=== PATIENT | male | born 1995 | race Caucasian/White ===

== ENCOUNTER 2016-09-12 08:17 | Emergency (ER) | payer BC ==
[~2016-09-12] VITALS: Ht 177.8 cm; Wt 81.6 kg
[~2016-09-12 08:17] MED LIST: HYDR-3812 PO; IBP800T PO
[2016-09-12] MEDS ORDERED: TETANUS,DIPTH,PERTUSS P/F (BOOSTRIX) 0.5 ML VIAL IM ONE (08:45)
[2016-09-12] MEDS ORDERED: HYDROcodone/APAP 5 MG/325 MG (LORTAB) TAB PO ONE (08:45)
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
--- NOTE | 2016-09-12 09:18 | Diagnostic Imaging Report ---
INDICATION: Fall, right wrist pain COMPARISON: None FINDINGS: Four views of the right wrist demonstrate minimally displaced fracture of the radial styloid. No intra-articular involvement is seen. The ulna is intact. Carpal bones are grossly normal. IMPRESSION: Distal radial fracture. Dictated by: Dictated on workstation # [id number]
--- NOTE | 2016-09-12 09:21 | Diagnostic Imaging Report ---
INDICATION: Left elbow pain and injury COMPARISON: None FINDINGS: 3 views of the left elbow demonstrate no fracture or dislocation. Articular surfaces normal. There is no joint effusion. IMPRESSION: Negative left elbow. Dictated by: Dictated on workstation # [id number]
[2016-09-12] MEDS ORDERED: HYDR-757 PO (09:37)
[2016-09-12 09:41] VITALS: BP 0/0
== END 2016-09-12 09:41 | disposition home or self-care (01) ==
LOC: EDUNIT# 08:17 → ER 08:18
DX: S52.501A Unspecified fracture of the lower end of right radius, initial encounter for closed fracture (principal); S60.811A Abrasion of right wrist, initial encounter; Z23 Encounter for immunization; W01.0XXA Fall on same level from slipping, tripping and stumbling without subsequent striking against object, initial encounter; Y99.8 Other external cause status
CPT/HCPCS: 29125; 73080; 73110; 90471; 90715

== ENCOUNTER 2017-12-28 15:59 | Emergency (ER) | payer BC ==
[~2017-12-28] VITALS: Ht 177.8 cm; Wt 74.8 kg
[~2017-12-28 15:59] MED LIST changes: +ACHD5005 PO; -HYDR-3812 PO; +HYDR-757 PO
--- OUTSIDE RECORDS SUMMARY | 2017-12-28 16:04 | XMS REPORT | Continuity of Care Document ---
Author Author [facility] Organization [facility] Address Unknown Phone Unavailable Allergies Active Description Code Type Severity Reaction Onset Reported/Identified Relationship to Patient Clinical Status Yes No Known Drug Allergies [id number] Drug Allergy Mild N/A 12/05/2009 Medications There is no data. Problems Date Dx Coded Attending Type Code Diagnosis Diagnosed By 04/25/2012 Ot 733.6 04/25/2012 Ot 786.50 04/25/2012 Ot 786.52 04/06/2015 KAVYA STEEN ANVIL WORKER Ot 719.41 04/06/2015 KATIA ROBINS Ot 815.00 04/06/2015 KATIA ROBINS Ot 959.4 04/06/2015 KATIA ROBINS Ot E000.8 04/06/2015 KATIA ROBINS Ot E008.1 04/06/2015 KATIA ROBINS Ot E849.0 04/06/2015 KATIA ROBINS Ot E917.4 04/06/2015 KATIA ROBINS Ot V06.1 04/06/2015 KAVYA STEEN ANVIL WORKER Ot 719.41 09/12/2016 TEVIN ANTOINE MD Ot S52.501A UNSP FRACTURE OF THE LOWER END OF RIGHT 09/12/2016 TEVIN ANTOINE MD Ot S60.811A ABRASION OF RIGHT WRIST, INITIAL ENCOUNT 09/12/2016 TEVIN ANTOINE MD Ot S69.91XA UNSP INJURY OF RIGHT WRIST, HAND AND FIN 09/12/2016 TEVIN ANTOINE MD Ot W01.0XXA FALL SAME LEV FROM SLIP/TRIP W/O STRIKE 09/12/2016 TEVIN ANTOINE MD Ot Y99.8 OTHER EXTERNAL CAUSE STATUS 09/12/2016 TEVIN ANTOINE MD Ot Z23 ENCOUNTER FOR IMMUNIZATION 09/13/2016 TEVIN ANTOINE MD Ot S52.501A UNSP FRACTURE OF THE LOWER END OF RIGHT 09/13/2016 TEVIN ANTOINE MD Ot S60.811A ABRASION OF RIGHT WRIST, INITIAL ENCOUNT 09/13/2016 TEVIN ANTOINE MD Ot S69.91XA UNSP INJURY OF RIGHT WRIST, HAND AND FIN 09/13/2016 TEVIN ANTOINE MD Ot W01.0XXA FALL SAME LEV FROM SLIP/TRIP W/O STRIKE 09/13/2016 TEVIN ANTOINE MD Ot Y99.8 OTHER EXTERNAL CAUSE STATUS 09/13/2016 TEVIN ANTOINE MD Ot Z23 ENCOUNTER FOR IMMUNIZATION Procedures There is no data. Results There is no data. Encounters ACCT No. Visit Date/Time Discharge Status Pt. Type Provider Facility Loc./Unit Complaint [id number] 09/12/2016 08:18:00 09/12/2016 09:41:00 DIS Emergency TEVIN ANTOINE MD [facility] ER R WRIST INJ [id number] 04/06/2015 19:59:00 04/06/2015 21:28:00 DIS Emergency KATIA ROBINS [facility] ER [id number] 03/03/2013 09:23:00 03/03/2013 23:59:59 CLS Outpatient KAVYA STEEN APRN [facility] RAD [id number] 04/06/2015 19:58:00 Document Registration [id number] 04/25/2012 20:01:00 Document Registration
--- OUTSIDE RECORDS SUMMARY | 2017-12-28 16:04 | XMS REPORT ---
Author Author JUDSON MONACO Organization [facility] Address [address] [place] [address] Care Team Providers Care Money Market Dealer Name Role Phone JUDSON MONACO Unavailable PROBLEMS Type Condition ICD9-CM Code [id number] Code Onset Dates Condition Status SNOMED Code Problem Mild episode of recurrent major depressive disorder F33.0 Active 176019041 Problem Generalized social phobia F40.11 Active [id number] ALLERGIES Substance Reaction Event Type Date Status N.K.D.A. Unknown Non Drug Allergy Jul, Unknown SOCIAL HISTORY No smoking Hx information available PLAN OF CARE Activity Details Follow Up 4 Weeks Reason: VITAL SIGNS Height 70.2 in 2016-07-28 Weight 186.1 lbs 2016-07-28 Heart Rate 90 bpm 2016-07-28 Respiratory Rate 2016-07-28 BMI 26.55 kg/m2 2016-07-28 Blood pressure systolic 130 mmHg 2016-07-28 Blood pressure diastolic 80 mmHg 2016-07-28 MEDICATIONS Medication Instructions Dosage Frequency Start Date End Date Duration Status Effexor XR 150 MG Orally Once a day 1 capsule with food 24h Jul, Active Quetiapine Fumarate 50 MG Orally Once a day 1 tablet 24h Active RESULTS No Results PROCEDURES Procedure Date Ordered Related Diagnosis Body Site MH Office Visit, Est Pt., Level 2 Jul 28, 2016 IMMUNIZATIONS No Known Immunizations
--- OUTSIDE RECORDS SUMMARY | 2017-12-28 16:04 | XMS REPORT ---
Author Author JUDSON MONACO [facility] Address [address] [place] [address] Care Team Providers Care Propagation Worker Name Role Phone JUDSON MONACO Unavailable PROBLEMS Type Condition ICD9-CM Code [id number] Code Onset Dates Condition Status SNOMED Code Problem Generalized social phobia F40.11 Active 24092169 Problem Mild episode of recurrent major depressive disorder F33.0 Active [id number] ALLERGIES Substance Reaction Event Type Date Status N.K.D.A. Unknown Non Drug Allergy Aug, Unknown SOCIAL HISTORY No smoking Hx information available PLAN OF CARE Activity Details Follow Up 4 Weeks Reason: VITAL SIGNS Height 70.2 in 2016-08-26 Weight 181.6 lbs 2016-08-26 Heart Rate 128 bpm 2016-08-26 Respiratory Rate 22 2016-08-26 BMI 25.91 kg/m2 2016-08-26 Blood pressure systolic 140 mmHg 2016-08-26 Blood pressure diastolic 93 mmHg 2016-08-26 MEDICATIONS Medication Instructions Dosage Frequency Start Date End Date Duration Status Abilify 10 mg Orally Once a day 1 tablet in the AM 24h Aug, Active Wellbutrin SR 100 MG Orally Once a day 1 tablet 24h Aug, Active RESULTS No Results PROCEDURES Procedure Date Ordered Related Diagnosis Body Site MH Office Visit, Est Pt., Level 2 Aug 26, 2016 IMMUNIZATIONS No Known Immunizations
--- NOTE | 2017-12-28 17:13 | Diagnostic Imaging Report ---
INDICATION: Hand trauma, pain. COMPARISON: None. FINDINGS: Three views of the left hand demonstrate angulated nondisplaced distal fifth metacarpal fracture. No intra-articular involvement is seen. There is no foreign body. IMPRESSION: Fifth metacarpal fracture. Dictated by: Dictated on workstation # [id number]
[2017-12-28] MEDS ORDERED: HYDR-3812 PO (18:24)
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
[2017-12-28 18:33] VITALS: BP 136/84
== END 2017-12-28 18:33 | disposition home or self-care (01) ==
LOC: EDUNIT# 15:59 → ER 16:00
DX: S62.347A Nondisplaced fracture of base of fifth metacarpal bone, left hand, initial encounter for closed fracture (principal); F41.9 Anxiety disorder, unspecified; F32.9 Major depressive disorder, single episode, unspecified; F12.10 Cannabis abuse, uncomplicated; W22.01XA Walked into wall, initial encounter
CPT/HCPCS: 73130

== ENCOUNTER 2019-10-12 19:44 | Emergency (ER) | payer BC, OTHER ==
[~2019-10-12] VITALS: Ht 179 cm; Wt 82.0 kg
[~2019-10-12 19:44] MED LIST changes: +HYDR-4226 PO; -HYDR-757 PO
[2019-10-12 20:02] VITALS: BP 136/72
[2019-10-12] MEDS ORDERED: cefTRIAXone 1,000 MG/2.86 ml vial (IM ONLY) IM SCH (20:15)
[2019-10-12] MEDS ORDERED: AZITHROMYCIN 250 MG TAB (ZITHROMAX) PO SCH (20:15)
[2019-10-12] MEDS ORDERED: LIDOCAINE 1% INJ 20 ML 20 ML VIAL INJ ONE (20:15)
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
[2019-10-12 20:30] LABS: BILIRUBIN,URINE NEGATIVE (NEGATIVE); CLARITY,URINE CLEAR; COLOR,URINE YELLOW; GLUCOSE, URINE (UA) NEGATIVE (NEGATIVE); KETONES,URINE NEGATIVE (NEGATIVE); LEUKOCYTE ESTERASE ,URINE NEGATIVE (NEGATIVE); NITRITE,URINE NEGATIVE (NEGATIVE); PH,URINE 6.5 (5-9); PROTEIN,URINE TRACE (NEGATIVE)
[2019-10-12 20:38] LABS: BACTERIA,URINE TRACE /HPF; RBC,URINE RARE /HPF; SQUAMOUS EPITHELIAL CELL,UR RARE /HPF
[2019-10-12 20:39] LABS: AMORPHOUS SEDIMENT,UR FEW AMOR URATES /LPF
--- NOTE | 2019-10-12 20:42 | Diagnostic Imaging Report ---
PROCEDURE: CT urinary tract, rule out kidney stone. TECHNIQUE: Multiple contiguous axial images were obtained through the abdomen and pelvis without the use of intravenous contrast. Auto Exposure Controls were utilized during the CT exam to meet ALARA standards for radiation dose reduction. INDICATION: Right flank pain Unenhanced images of the liver, gallbladder, pancreas and spleen are unremarkable. Unenhanced images of the kidneys reveal no evidence of mass, hydronephrosis or renal stone. No ureteric calculus or dilatation is identified. There is no evidence of bladder calculus. There is no evidence of appendiceal inflammation. No free fluid is seen within the abdomen or pelvis. Colon is largely decompressed. There is localized L3-L4 degenerative disc disease with endplate irregularity which may be related to previous inflammation. IMPRESSION: No acute abnormalities identified. In particular, there is no evidence of urinary tract calculus or obstruction on the noncontrasted study. Dictated by: Dictated on workstation # [id number]
--- OUTSIDE RECORDS SUMMARY | 2019-10-17 00:06 | XMS REPORT ---
Author Author [facility] Organization [facility] Address [address] [address] Care Team Providers Care Sap Bods Developer Name Role Phone PIPER DAWSON Unavailable JUDSON MONACO Unavailable JUDSON MONACO Unavailable PIPER DAWSON Unavailable SHY SCHUMACHER Unavailable TEVIN ANTOINE MD Unavailable Unavailable Allergies Normalized Allergy Reported Date of Reaction(s) Care Provider Facility Allergy Type classification allergen Allergy Onset DA (3 Unclassified No Known Drug 12-05-2009 - no information TEVIN ANTOINE , Not Available sources.) Allergies (52995) Medications Medication Ingredient Drug Dose Dates Status Sig Sig Care Class(es) (Normalized) (Original) Provid er no Ibuprofen no 800 mg 04-25-20 Complete take 1 Ibuprofe n Sherman information (Motrin information 12 - d tablet by (Motrin A (1 source.) Tablet) 800 20 mouth three Tablet) 800 Preet chastity Mg Tablet, 18 times daily Mg Tablet, 1 (no 1 Each Oral as needed Each Oral phone) Three Times A Day And Prn 04/25/12 Discontinued Problems Active Problems Problem Normalized Date of Normalized Normalized Provider Fac ility Classification Problem(s) Problem Problem Problem Sta tus Onset/Resoluti Duration on Substance-rela Cannabis Chronic Active BERNA Not Avai lable ralf disorders abuse, TRACY , (40596) (4 sources.) uncomplicated MD Other injuries Hand, except Episodic Active KATIA Not Available and conditions finger injury SUSAN GUZMAN (85710) due to external causes (1 source.) Immunizations Need for Episodic Active TEVIN ANTOINE , Not Available and screening prophylactic MD (91587) for infectious vaccination disease (4 and sources.) inoculation against diphtheria-tet anus-pertussis , combined [DTP] [DTaP] Translations: [ - Sexually transmitted disease exposure Z20.2, ENCOUNTER FOR IMMUNIZATION] Fracture of Nondisplaced Episodic Active TEVIN ANTOINE , No t Available upper limb (7 fracture of (58888) sources.) base of fifth metacarpal bone, left hand, initial encounter for closed fracture Translations: [ FX METACARPAL NOS-CLOSED, UNSP FRACTURE OF THE LOWER END OF RIGHT ] Other Other Episodic Active BERNA Not Available connective specified soft BRUEGGEDALILA , (60030) tissue disease tissue (4 sources.) disorders Other Pain in joint, Episodic Active KAVYA Not Chinyere ilable non-traumatic shoulder HALLACY (05401) joint region disorders (1 source.) Unclassified no information no information Active PIPER BARRINGTON VENS [facility] (2 sources.) [address] [facility] (18785) Past or Other Problems Problem Normalized Date of Normalized Normalized Provider Fac ility Classification Problem(s) Problem Problem Problem Sta tus Onset/Resoluti Duration on Superficial Abrasion of Episodic Completed TEVIN ANTOINE , Not Available injury; right wrist, (23508) contusion (2 initial sources.) encounter External cause Activities no information no information TEVIN MCCARTHYOMB , Not Available codes: involving (07900) Unspecified (3 wrestling sources.) Translations: [ OTHER EXTERNAL CAUSE STATUS, OTHER EXTERNAL CAUSE STATUS] External cause Fall on same no information no information TEVIN ANTOINE , Not Available codes: Fall (2 level from (12112) sources.) slipping, tripping and stumbling without subsequent striking against object, initial encounter External Home accidents no information no information KATIA Not Available Injury - Place SUSAN GUZMAN (12448) of occurrence (1 source.) Mood disorders Major no information no information BERNA Not Available (4 sources.) depressive BRUNIKOLE , (40485) disorder, single episode, unspecified Other injuries Unspecified Episodic Completed TEVIN ANTOINE , Not Available and conditions injury of (34048) due to right wrist, external hand and causes (2 finger(s), sources.) initial encounter NEGATED Walked into no information no information BERNA Not Available no wall, initial BRUEGGEDALILA , (21516) information (5 encounter MD sources.) Translations: [ STAT OB W/O SUB FALL NEC] Procedures Procedure Normalized Procedure Procedure Result Performer Facility Date 12-28-2017 Radiography of hand no information BERNAIRIS CONNER [facility] ([address]) Immunizations Normalized Immunization Date Notes Care Provider Facili ty Immunization diphtheria, tetanus 09-12-2016 no information no name Not Available toxoids and (95769) acellular pertussis vaccine tetanus toxoid, 09-12-2016 no information PIPER DAWSON [address] [address] [facility] reduced diphtheria [place] ([address]) toxoid, and acellular pertussis vaccine, adsorbed Results Test Name Value Interpretation Reference Range Date Time Fa cility (Normalized) (Normalized) (Medline Reference) No panel information on null Sodium no information (no code) [facility] ([address]) Vital Signs Vital Sign Value Interpretation Reference Date Time Care Prov ider Facility (Normalized) (Normalized) Range BMI (Body Mass 25.97 kg/m2 (no code) 15 - 25 kg/m2 05-04-2018 [facility] Community Index) 15:40-[address] ([address]) Height 177.8 cm (no code) cm 05-04-2018 SHY Commu nity 15:40-[address] ([address]) Weight 82.1 kg (no code) kg 05-04-2018 SHY Commu nity 15:40-[address] ([address]) Interventions No Information Plan of Treatment The data below is from unstructured sources Discharge Date 09/12/16 9:41am Disposition 01 HOME, SELF-CARE Condition at Discharge Improved Instructions/Education Provided Radi us Fracture (DC) Prescriptions See Medication Section Referrals MELVINA SPICER MD - PIPER DAWSON MD - Primary Care Physician PIPER DAWSON MD - Primary Care Physician Additional Instructions/Education Sp lint right wrist. Elevate and ice. Vicodin for pain. Follow up with your doctor or the orthopedic surgeon Wednesday. Come back if any problems. All discharge instructions reviewed with patient and/or family. Voiced understanding. Discharge Date 04/06/15 9:28pm Disposition 01 HOME, SELF-CARE Condition at Discharge Improved Instructions/Education Provided Hand Fracture (ED) How to Use a Sling (GEN) Forms Provided Work/School Release F orm Prescriptions See Medication Section Referrals PIPER DAWSON MD - [facility] Physician SHANE MOURA MD - Additional Instructions/Education Al l discharge instructions reviewed with patient and/or family. Voiced understanding. Medications as instructed. No Motrin, Aleve, or aspirin. Elevate the right hand on pillows, ice pack for 20 minute intervals 6 times daily for 3 days. Follow-up with Dr. Moura in the next 7 days for recheck, call first thing Wednesday morning for appointment time. Keep the splint clean and dry. Left-handed activities only until released by the orthopedic surgeon. Return to the emergency department for worsened pain, swelling, numbness, discoloration, pain from the splint, or any other concerns. Activity Details Follow Up 4 Weeks Reason: Discharge Date 12/28/17 6:33pm Disposition 01 HOME, SELF-CARE Condition at Discharge Improved Instructions/Education Provided Boxe r's Fracture Prescriptions See Medication Section Referrals PIPER DAWSON MD Order Date: Primary Care Physician Address: [address] [place] [address] Note: SHANE MOURA MD Address: [address] [address] [phone] Additional Instructions/Education El evation and icing in 20 minute intervals should help with pain and swelling. You may take Tylenol or the prescribed hydrocodone for pain. Follow up with Dr. Moura as soon as possible for further evaluation. Keep the hand in the splint. The Audie wraps can be loosened if necessary if swelling causes them to be too tight. Keep the splint clean and dry. Return to care if you have any significant complications. All discharge instructions reviewed with patient and/or family. Voiced understanding. Activity Details Follow Up prn Reason: Activity Details Follow Up prn Reason: Goals No Information Social History No Information Functional Status The data below is from unstructured sourcesNo functional status results.No functional status results.No functional status results.No functional status information available.No functional status information available. Mental Status No Information Encounters Encounter Normalized Encounter Encounter Diagnosis Care Provi wendy Organization Date Type 05-04-2018 (ACUTE) Acute Visit Contact with Shruti STATON AM (no [facility] (suspected) exposure phone) (no phone) to infections with a predominantly sexual mode of transmission 12-26-2014 (D-E/F/S) Dental examination MIKEY clarkAUTUMN (n o [facility] Extraction/Filling/SSC phone) DENTAL (no jostin ne) 02-12-2015 (D-PAIN/EMMY) Pain/EMMY Dental examination MIKEY KRUGER (no [facility] phone) DENTAL (no phone) 08-26-2016 (PSY-FU-20) Psychiatry Major depressive DAWNY BARNH ART (no [facility] FQ F/U 20 min disorder, recurrent, phone) (no phone ) mild 07-28-2016 (PSY-FU-20) Psychiatry Major depressive DAWNY BARNH ART (no [facility] FQHC F/U 20 min disorder, recurrent, phone) (no phone ) mild 07-07-2016 (PSY-INTAKE) Major depressive DAWNY JACINDA (no [facility] Psychiatry Intake disorder, recurrent, phone) (no ph one) mild 12-28-2017 Emergency department no information BERNA ABRAHAM no organization name - patient visit Work Phone: (no phone) 12-28-2017 12-28-2017 Patient encounter no information no name (no phone) no organization name (no phone) 03-03-2013 Patient encounter no information no name (no phone) no organization name (no phone) 09-19-2018 Patient encounter no information no name (no phone) no organization name procedure (no phone) 09-12-2016 Patient encounter no information no name (no phone) no organization name procedure (no phone) Patient encounter no information no name (no phone) no organ ization name procedure (no phone) no information Dental examination no name (no phone) no orga nization name (no phone) Medical Equipment No Information Payers No Information Advance Directives Directive Response Recor ded Date/Time Advance Directives No 8:30am Resuscitation Status Full Code 09/12/16 8:30am Directive Response Recor ded Date/Time Advance Directives No 8:13pm Resuscitation Status Full Code 04/06/15 8:13pm Directive Response Recor ded Date/Time Advance Directives No 4:40pm Resuscitation Status Full Code 12/28/17 4:40pm Discharge Instructions No hospital discharge instructions.No hospital discharge instructions.No hospital discharge instruction information available. Additional Source Comments This clinical document has been generated using [employer] software that has been certified by the Office of the National Coordinator for Health Information Technology (ONC 15.99.04.3023.Diam.[id number]) and the National Committee for [employer] (NCQA, as an eMeasure certified technology). FOR RECORDS PERTAINING TO PATIENTS WHO ARE OR HAVE BEEN ENROLLED IN A CHEMICAL D EPENDENCY/SUBSTANCE ABUSE PROGRAM, SOME INFORMATION MAY BE OMITTED. This clinica l summary was aggregated from multiple sources. Caution should be exercised in using it in the provision of clinical care. This summary normalizes information from multiple sources, and as a consequence, information in this document may ma terially change the coding, format and clinical context of patient data. In hernan tion, data may be omitted in some cases. CLINICAL DECISIONS SHOULD BE BASED ON T HE PRIMARY CLINICAL RECORDS. [employer] provides no warranty or guara ntee of the accuracy or completeness of information in this document.The followi ng information is based on time limited clinical information UNRECOGNIZED CONTENT PROVIDED BELOW FOR UNRECOGNIZED SECTION REASON FOR VISIT STD exposure
--- OUTSIDE RECORDS SUMMARY | 2019-10-17 00:06 | XMS REPORT ---
Author Author Dwayne SCHUMACHER Organization [facility] Address [address] [place] [address] Care Team Providers Care Director Of Analytical Development Name Role Phone SHY SCHUMAHCER Unavailable PROBLEMS Type Condition ICD9-CM Code BAG23-MH Code Onset Dates Condition S tatus SNOMED Code Problem Generalized social phobia F40.11 Acti ve [id number] Problem Mild episode of recurrent major depressive disorder F33.0 Active [id number] ALLERGIES No Known Allergies ENCOUNTERS Encounter Location Date Diagnosis [facility] [address] [id number] Apr, Sexually transmitted disease exposure Z20.2 [facility] [address] [phone] Aug, Mild episode of recurrent ma kena depressive disorder F33.0 and Generalized social phobia F40.11 [facility] [id number] [place] [phone] Jul, Mild episode of recurrent ma kena depressive disorder F33.0 and Generalized social phobia F40.11 [facility] [address] [id number] [address] [place] [id number] Jun, Mild episode of recurrent ma kena depressive disorder F33.0 and Generalized social phobia F40.11 [facility] [address] [facility] [id number] [address] [place] [phone] Feb, Dental examination V72.2 [facility] [address] [id number] [address] [place] [phone] December, Dental examination V72.2 IMMUNIZATIONS No Known Immunizations SOCIAL HISTORY Never Assessed REASON FOR VISIT STD exposure PLAN OF CARE Activity Details Follow Up prn Reason: VITAL SIGNS Height 70 in 2018-05-04 Weight 181 lbs 2018-05-04 Heart Rate 98 bpm 2018-05-04 Respiratory Rate 18 2018-05-04 BMI 25.97 kg/m2 2018-05-04 Blood pressure systolic 138 mmHg 2018-05-04 Blood pressure diastolic 88 mmHg 2018-05-04 MEDICATIONS No Known Medications RESULTS No Results PROCEDURES No Known procedures INSTRUCTIONS MEDICATIONS ADMINISTERED No Known Medications
--- OUTSIDE RECORDS SUMMARY | 2019-10-17 00:06 | XMS REPORT | Continuity of Care Document ---
Author Organization Unknown Address Unknown Phone Unavailable Allergies Active Description Code Type Severity Reaction Onset Reported/Identified Relationship to Patient Clinical Status Yes No Known Drug Allergies [id number] Drug Allergy Mild N/A 12/05/2009 Medications There is no data. Problems Date Dx Coded Attending Type Code Diagnosis Diagnosed By 04/25/2012 Ot 733.6 04/25/2012 Ot 786.50 04/25/2012 Ot 786.52 04/06/2015 KAVYA STEEN ORDNANCE HANDLER Ot 719.41 04/06/2015 KATIA ROBINS Ot 815.00 FX METACARPAL NOS-CLOSED 04/06/2015 KATIA ROBINS Ot 959.4 HAND INJURY NOS 04/06/2015 KATIA ROBINS Ot E000.8 OTHER EXTERNAL CAUSE STATUS 04/06/2015 KATIA ROBISN Ot E008.1 ACTIVITIES INVOLVING WRESTLING 04/06/2015 KATIA ROBINS Ot E849.0 ACCIDENT IN HOME 04/06/2015 KATIA ROBINS Ot E917.4 STAT OB W/O SUB FALL NEC 04/06/2015 KATIA ROBINS Ot V06.1 [id number], COMBINED [ 04/06/2015 KAVYA STEEN ORDNANCE HANDLER Ot 719.41 09/12/2016 TEVIN ANTOINE MD Ot S52.501A UNSP FRACTURE OF THE LOWER END OF RIGHT 09/12/2016 TEVIN ANTOINE MD Ot S60.811A ABRASION OF RIGHT WRIST, INITIAL ENCOUNT 09/12/2016 TEVIN ANTOINE MD Ot S69.91XA UNSP INJURY OF RIGHT WRIST, HAND AND FIN 09/12/2016 TEVIN ANTOINE MD Ot W01.0XXA FALL SAME LEV FROM SLIP/TRIP W/O STRIKE 09/12/2016 TEVIN ANTOINE MD Ot Y99. 8 OTHER EXTERNAL CAUSE STATUS 09/12/2016 TEVIN ANTOINE MD Ot Z23 ENCOUNTER FOR IMMUNIZATION 09/13/2016 ARASH GOLD, TEVIN Kumar Ot S52.501A UNSP FRACTURE OF THE LOWER END OF RIGHT 09/13/2016 ARASH GOLD, TEVIN Kumar Ot S60.811A ABRASION OF RIGHT WRIST, INITIAL ENCOUNT 09/13/2016 ARASH GOLD TEVIN Kumar Ot S69.91XA UNSP INJURY OF RIGHT WRIST, HAND AND FIN 09/13/2016 TEVIN ANTOINE MD Ot W01.0XXA FALL SAME LEV FROM SLIP/TRIP W/O STRIKE 09/13/2016 ARASH GOLD, TEVIN Stacy Ot Y99. 8 OTHER EXTERNAL CAUSE STATUS 09/13/2016 ARASH GOLD, TEVIN Kumar Ot Z23 ENCOUNTER FOR IMMUNIZATION 12/28/2017 BERNA MOLINA MD Ot F12.10 CANNABIS ABUSE, UNCOMPLICATED 12/28/2017 BERNA MOLINA MD Ot F32.9 MAJOR DEPRESSIVE DISORDER, SINGLE EPISOD 12/28/2017 BERNA MOLINA MD Ot F41.9 ANXIETY DISORDER, UNSPECIFIED 12/28/2017 BERNA MOLINA MD Ot M79.89 OTHER SPECIFIED SOFT TISSUE DISORDERS 12/28/2017 BERNA MOLINA MD Ot S62.347A NONDISP FX OF BASE OF FIFTH METACARPAL B 12/28/2017 BERNA MOLINA MD Ot W22.01XA WALKED INTO WALL, INITIAL ENCOUNTER 12/30/2017 BERNA MOLINA MD Ot F12.10 CANNABIS ABUSE, UNCOMPLICATED 12/30/2017 BERNA MOLINA MD Ot F32.9 MAJOR DEPRESSIVE DISORDER, SINGLE EPISOD 12/30/2017 BERNA MOLINA MD Ot F41.9 ANXIETY DISORDER, UNSPECIFIED 12/30/2017 BERNA MOLINA MD Ot M79.89 OTHER SPECIFIED SOFT TISSUE DISORDERS 12/30/2017 BERNA MOLINA MD Ot S62.347A NONDISP FX OF BASE OF FIFTH METACARPAL B 12/30/2017 BERNA MOLINA MD Ot W22.01XA WALKED INTO WALL, INITIAL ENCOUNTER 01/03/2018 BERNA MOLINA MD Ot F12.10 CANNABIS ABUSE, UNCOMPLICATED 01/03/2018 TRACY GOLD, BERNA Ponce Ot F32.9 MAJOR DEPRESSIVE DISORDER, SINGLE EPISOD 01/03/2018 BERNA MOLINA MD Ot F41.9 ANXIETY DISORDER, UNSPECIFIED 01/03/2018 BERNA MOLINA MD Ot M79.89 OTHER SPECIFIED SOFT TISSUE DISORDERS 01/03/2018 BERNA MOLINA MD Ot S62.347A NONDISP FX OF BASE OF FIFTH METACARPAL B 01/03/2018 BERNA MOLINA MD Ot W22.01XA WALKED INTO WALL, INITIAL ENCOUNTER 05/16/2018 KAVYA STEEN ORDNANCE HANDLER Ot 719.41 JOINT PAIN-SHLDER Procedures There is no data. Results Test Result Range CULTURE, URINE - 10/06/19 13:29 CULTURE, URINE, ROUTINE SEE NOTE NRG Complete urinalysis with reflex to cultu re - 10/12/19 20:15 Urine color determination YELLOW NRG Urine clarity determination CLEAR NR G Urine pH measurement by test strip 6.5 5-9 Specific gravity of urine by test strip >= 1.016-1.022 Urine protein assay by test strip, semi-quantitative TRACE NEGATIVE Urine glucose detection by automated test strip NE GATIVE NEGATIVE Erythrocytes detection in urine sediment by light micr oscopy NEGATIVE NEGATIVE Urine ketones detection by automated test strip NE GATIVE NEGATIVE Urine nitrite detection by test strip NEGATIVE NEGATIVE Urine total bilirubin detection by test strip NEGA TIVE NEGATIVE Urine urobilinogen measurement by automated test strip (mass/volume) 0.2 mg/dL < = 1.0 Urine leukocyte esterase detection by dipstick NEG ATIVE NEGATIVE Automated urine sediment erythrocyte cou nt by microscopy (number/high power field) RARE NRG Automated urine sediment leukocyte count by microscopy (number/high power field) NONE NRG Bacteria detection in urine sediment by light microsco py TRACE NRG Squamous epithelial cells detection in u rine sediment by light microscopy RARE NRG Crystals detection in urine sediment by light microsco py PRESENT NRG Casts detection in urine sediment by light microscopy NONE NRG Mucus detection in urine sediment by light microscopy LARGE NRG Complete urinalysis with reflex to culture NO NRG Amorphous sediment detection in urine sediment by ligh t microscopy FEW JEANNE URATES NRG Chlamydia DNA amp probe, urine - 0 20:15 Chlamydia DNA amp probe, urine Not Detected Not Detected Urine Neisseria gonorrhoeae DNA assay - 10/12/19 20:15 Gonorrhea amp DNA-urine Not Detected No t Detected Encounters ACCT No. Visit Date/Time Discharge Status Pt. Type Provider Facility Loc./Unit Complaint [id number] 10/12/2019 19:46:00 020 20:48:00 DIS Emergency JERMAIN KIRK ORDNANCE HANDLER [facility] ER PAIN IN RT SIDE [id number] 12/28/2017 16:00:00 018 18:33:00 DIS Emergency TRACY GOLD, BERNA T [facility] ER L HAND INJ [id number] 09/12/2016 08:18:00 017 09:41:00 DIS Emergency ARASH GOLD, TEVIN S [facility] ER R WRIST INJ [id number] 04/06/2015 19:59:00 015 21:28:00 DIS Emergency KATIA ROBINS [facility] ER POSS BROKEN KNUCKLE [id number] 03/03/2013 09:23:00 013 23:59:59 CLS Outpatient KAVYA STEEN ORDNANCE HANDLER [facility] RAD LEFT SHOULDER P AIN [id number] 04/06/2015 19:58:00 Document Registration [id number] 04/25/2012 20:01:00 Document Registration [id number] 04/07/2015 03:11:24 ACT Document Registration [id number] 10/06/2019 14:05:00 10/06/2019 23:59: 59 CLS Outpatient SHY SCHUMACHER [facility] [id number] 10/06/2019 14:05:00 Document Registration
--- OUTSIDE RECORDS SUMMARY | 2019-10-17 00:06 | XMS REPORT | Encounter Summary ---
Author Author [facility] Address Unknown Phone Unavailable Care Team Providers Care Deckhand Engineer Name Role Phone PCP Unavailable Reason for Visit * Reason Comments Dental Pain Encounter Details Care Team Description Date Type Department Maribel Spear DO [address] [facility] [place] [address] [phone] Geovanni Lagunas MD [address], [place] [id number] Dental caries (Primary Dx); Pain, dental 02/09/2015 Emergency [facility] [address], [place] [id number] Social History Date Tobacco Use Types Packs/Day Years Used Former Smoker Drinks/Week oz/Week Comments Alcohol Use No Sex Assigned at Date Recorded Not on file Industry Job Start Date Occupation Not on file Not on file Not on file Travel End Travel History Travel Start No recent travel history available. documented as of this encounter Last Filed Vital Signs Reading Time Taken Comments Vital Sign 128/82 02/09/2015 1:11 PM CDT Blood Pressure 80 02/09/2015 1:11 PM CDT Pulse 36.4 C (97.5 F) 02/09/2015 1:11 PM CDT Temperature 15 02/09/2015 1:11 PM CDT Respiratory Rate 99% 02/09/2015 1:11 PM CDT Oxygen Saturation - - Inhaled Oxygen Concentration 74.8 kg (165 lb) 02/09/2015 1:11 PM CDT Weight 175.3 cm (5' 9") 02/09/2015 1:11 PM CDT Height 24.37 02/09/2015 1:11 PM CDT Body Mass Index documented in this encounter Discharge Instructions * Instructions* Maribel Spear, - 02/09/2015 Dental Cavity A dental cavity is a pit or crater in the surface of a tooth. This exposes the s ensitive inner layer of the tooth and causes pain. If the cavity isnt treated , it will get bigger. It may cause an infection or abscess in the root of the to oth. An infection in the tooth is a much more serious problem than a cavity. You might need a root canal or the entire tooth taken out. The pain in your tooth may be made worse by drinking hot or cold beverages. It m ay spread from the tooth to your ear or the area of your jaw on the same side. Home care Follow these tips when caring for yourself at home: Avoid hot and cold foods and drinks. Your tooth may be sensitive to changes i n temperature. If your tooth is chipped or cracked, or if there is a large open cavity, put oil of cloves directly on the tooth to relieve pain. You can buy oil of cloves a t [employer]. Some pharmacies carry an vorh-atd-vkeegdv "toothache kit." This co ntains a paste that you can put on the exposed tooth to make it less sensitive. Put a cold pack on your jaw over the sore area to help reduce pain. You may use acetaminophen or ibuprofen to ease pain, unless another medicine was prescribed. Note: If you have chronic liver or kidney disease, talk with you r health care provider before using these medicines. Also talk with your provide r if youve had a stomach ulcer or GI bleeding. If you have signs of an infection, you will be given an antibiotic. Take it a s directed. Follow-up care Follow up with your dentist as advised. Your pain may go away with the treatment given today. But only a dentist can fully look at and treat this problem to pre vent further tooth damage. When to seek medical advice Call your health care provider right awayif any of these occur: Redness or swelling of the face Pain gets worse or spreads to your neck Fever over 100.5 F (38C) Unusual drowsiness Headache or stiff neck Weakness or fainting Pus drains from the tooth or gum Difficulty swallowing or breathing [id number] [employer]. [address] [place] [address], [place], [place] [address]. All rights reserved. This information is not intended as a substitute for pro fessional medical care. Always follow your healthcare professional's instruction s. Dental Pain A crack or cavity in a tooth can cause tooth pain. This is because the crack or cavity exposes the sensitive inner area of the tooth. An infection in the gum or the root of the tooth can cause pain and swelling. The pain is often made worse when you drink hot or cold beverages. It can also be worse when you bite on hard foods. Pain may spread from the tooth to your ear or the area of the jaw on the same side. Home care Follow these tips when caring for yourself at home: Avoid hot and cold foods and drinks. Your tooth may be sensitive to changes i n temperature. Use toothpaste made for sensitive teeth. [place] up and down instead of sideway s. Brushing sideways can wear away root surfaces if they are exposed. If your tooth is chipped or cracked, or if there is a large open cavity, put oil of cloves directly on the tooth to relieve pain. You can buy oil of cloves a t [employer] [place]. Some pharmacies carry an kiah-jkf-pkctbim "toothache kit." This co ntains a paste that you can put on the exposed tooth to make it less sensitive. Put a cold pack on your jaw over the sore area to help reduce pain. You may use acetaminophen or ibuprofen to ease pain, unless another medicine was prescribed. Note: If you have chronic liver or kidney disease, talk with you r health care provider before using these medicines. Also talk with your provide r if youve had a stomach ulcer or GI bleeding. If you have signs of an infection, you will be given an antibiotic. Take it a s directed. Follow-up care Follow up with your dentist as advised. Your pain may go away with the treatment given today. But only a dentist can fully look at and treat the cause of your p ain. This will keep the pain from coming back. A toothache is a sign of disease in your tooth. It should be looked at and treat ed by a dentist. When to seek medical advice Call your health care provider right awayif any of these occur: Your face becomes swollen or red Pain gets worse or spreads to your neck Fever over 100.4 F (38.0 C) Unusual drowsiness Headache or stiff neck Weakness or fainting Pus drains from the tooth Difficulty swallowing or breathing [id number] [employer]. [address] [place] [address] 7. All rights reserved. This information is not intended as a substitute for pro fessional medical care. Always follow your healthcare professional's instruction s. documented in this encounter Medications at Time of Discharge Start Date End Date Medication Sig Dispensed Refills 02/09/2015 02/12/2015 ketorolac (TORADOL) 10 mg Take one 20 tablet 0 tablet tablet (10 mg total) by mouth every 6 (six) hours as needed for pain. 02/09/2015 02/19/2015 penicillin v potassium Take one 40 tablet 0 (VEETID) 500 MG tablet tablet (500 mg total) by mouth 4 (four) times a day. documented as of this encounter ED Notes * Maribel Spear DO - 02/09/2015 1:22 PM CDT 02/09/2015 History Chief Complaint Patient presents with Dental Pain HPI Comments: Patient is here with chronic dental pain from OOT. He states he h as an appointment with his dentist on 02/12 to have this tooth removed. He is her e for pain control, because the oragel and the NSAIDS are not helping. Patient is a 19 y.o. male presenting with tooth pain. The history is provided by the patient. Dental Pain Location: Upper Upper teeth location: 2/RU 2nd molar Quality: Aching Severity: Mild Onset quality: Sudden Timing: Constant Progression: Worsening Chronicity: Chronic Context: dental caries, dental fracture and poor dentition Prior workup: none. Relieved by: Nothing Worsened by: Nothing tried Ineffective treatments: NSAIDs and topical anesthetic gel Associated symptoms: facial pain Associated symptoms: no drooling, no facial swelling, no fever, no gum swelling, no headaches, no neck pain, no oral bleeding and no oral lesions Risk factors: lack of dental care Risk factors: no alcohol problem, no cancer, no diabetes, no periodontal disease and no smoking History reviewed. No pertinent past medical history. Past Surgical History Procedure Laterality Date Knee surgery Left History reviewed. No pertinent family history. History Substance Use Topics Smoking status: Former Smoker Smokeless tobacco: Not on file Alcohol Use: No Review of Systems Constitutional: Negative. Negative for fever, chills, activity change, fatigue and unexpected weight change. HENT: Positive for dental problem. Negative for drooling, facial swelling, mouth sores and nosebleeds. Eyes: Negative. Respiratory: Negative. Negative for apnea, choking and stridor. Cardiovascular: Negative. Negative for palpitations and leg swelling. Gastrointestinal: Negative. Negative for diarrhea, constipation, abdominal dist ention, anal bleeding and rectal pain. Endocrine: Negative. Negative for cold intolerance, heat intolerance, polydipsi a, polyphagia and polyuria. Genitourinary: Negative for difficulty urinating. Musculoskeletal: Negative. Negative for neck pain. Skin: Negative. Negative for color change. Allergic/Immunologic: Negative for environmental allergies and food allergies. Neurological: Negative. Negative for dizziness, tremors, syncope and headaches. Hematological: Negative. Negative for adenopathy. Does not bruise/bleed easily. Psychiatric/Behavioral: Negative. Negative for suicidal ideas, behavioral probl ems, sleep disturbance, self-injury and agitation. All other systems reviewed and are negative. Physical Exam BP 124/74 mmHg | Pulse 56 | Temp(Src) 36.4 C (97.5 F) | Resp 15 | Ht 1.753 m (5' 9") | Wt 74.844 kg (165 lb) | BMI 24.36 kg/m2 | SpO2 100% Physical Exam Constitutional: He is oriented to person, place, and time. Vital signs are nicki l. He appears well-developed and well-nourished. HENT: Head: Normocephalic and atraumatic. Mouth/Throat: Abnormal dentition. Dental caries present. Eyes: Conjunctivae and EOM are normal. Pupils are equal, round, and reactive to light. Neck: Normal range of motion. Neck supple. Cardiovascular: Normal rate, regular rhythm, normal heart sounds and intact dist al pulses. Pulmonary/Chest: Effort normal and breath sounds normal. Abdominal: Soft. Bowel sounds are normal. Musculoskeletal: Normal range of motion. Neurological: He is alert and oriented to person, place, and time. He has normal reflexes. Skin: Skin is warm and dry. Psychiatric: He has a normal mood and affect. His behavior is normal. Judgment a nd thought content normal. Nursing note and vitals reviewed. ED Course Procedures MDM Number of Diagnoses or Management Options Dental caries: Pain, dental: Amount and/or Complexity of Data Reviewed Tests in the medicine section of CPT: ordered and reviewed Review and summarize past medical records: yes Independent visualization of images, tracings, or specimens: yes Risk of Complications, Morbidity, and/or Mortality Presenting problems: high Diagnostic procedures: high Management options: high Patient Progress Patient progress: stable Patient was given the opportunity to ask questions about all treatment and resul ts. All questions were answered completely. Patient seemed satisfied and to un derstand answers. Patient was given additional opportunity to ask questions and seek direction. Patient was told to follow up with patient's physician in the near future for further testing and examination. Patient verbalized understandi ng. Return precautions were given. ED Clinical Impression SNOMED CT(R) 1. Dental caries DENTAL CARIES 2. Pain, dental TOOTHACHE Maribel Spear DO 02/09/15 1612 documented in this encounter Plan of Treatment Not on filedocumented as of this encounter Visit Diagnoses Diagnosis Dental caries Unspecified dental caries Pain, dental documented in this encounter Administered Medications Action Date Dose Rate Site Medication Order MAR Action 02/09/2015 1:35 PM CDT 500 mg penicillin v potassium (VEETID) tablet Given 500 mg 500 mg, Oral, Once, 02/09/15 at 1329, For 1 dose, Take on empty stomach , 02/09/2015 1:35 PM CDT 100 mg traMADol (ULTRAM) tablet 100 mg Given 100 mg, Oral, Once, 02/09/15 at 1329, For 1 dose documented in this encounter
--- OUTSIDE RECORDS SUMMARY | 2019-10-17 00:06 | XMS REPORT | Clinical Summary ---
Author Author [facility] Address Unknown Phone Unavailable Care Team Providers Care A And P Technician Name Role Phone PCP Unavailable Allergies No Known Allergies Medications No known medications Active Problems Not on file Social History Date Tobacco Use Types Packs/Day Years Used Former Smoker Drinks/Week oz/Week Comments Alcohol Use No Sex Assigned at Date Recorded Not on file Industry Job Start Date Occupation Not on file Not on file Not on file Travel End Travel History Travel Start No recent travel history available. Last Filed Vital Signs Reading Time Taken Comments Vital Sign 124/74 02/09/2015 2:31 PM CDT Blood Pressure 56 02/09/2015 2:31 PM CDT Pulse 36.4 C (97.5 F) 02/09/2015 1:11 PM CDT Temperature 15 02/09/2015 1:11 PM CDT Respiratory Rate 100% 02/09/2015 2:31 PM CDT Oxygen Saturation - - Inhaled Oxygen Concentration 74.8 kg (165 lb) 02/09/2015 1:11 PM CDT Weight 175.3 cm (5' 9") 02/09/2015 1:11 PM CDT Height 24.37 02/09/2015 1:11 PM CDT Body Mass Index Plan of Treatment Not on file Results Not on filefrom Last 3 Months
== END 2019-10-12 20:48 | disposition home or self-care (01) ==
LOC: EDUNIT# 19:44 → ER 19:46
DX: R10.31 Right lower quadrant pain (principal); H57.89 Other specified disorders of eye and adnexa; F17.210 Nicotine dependence, cigarettes, uncomplicated; Z20.2 Contact with and (suspected) exposure to infections with a predominantly sexual mode of transmission
CPT/HCPCS: 74176; 81000; 87491; 87591

== ENCOUNTER 2020-05-28 11:03 | Emergency (ER) | payer SELFPAY ==
[~2020-05-28] VITALS: Ht 177 cm; Wt 79.0 kg
[2020-05-28 11:45] VITALS: BP 113/80
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
[2020-05-28 12:07] LABS: BILIRUBIN,URINE NEGATIVE (NEGATIVE); CLARITY,URINE CLEAR; COLOR,URINE YELLOW; GLUCOSE, URINE (UA) NEGATIVE (NEGATIVE); KETONES,URINE NEGATIVE (NEGATIVE); LEUKOCYTE ESTERASE ,URINE NEGATIVE (NEGATIVE); NITRITE,URINE NEGATIVE (NEGATIVE); PROTEIN,URINE TRACE (NEGATIVE)
--- NOTE | 2020-05-28 12:09 | ED GU-Male ---
General Chief Complaint: - Urinary Stated Complaint: STD CHECK, BLOOD DRAW Nursing Triage Note: PT CO OF R FLANK PAIN, STATE MAYBE UTI History of Present Illness Date Seen by Provider: May 28, 2020 Time Seen by Provider: 11:50 Initial Comments The patient arrives complaining of right flank/side pain. He states his pain has been ongoing for 1/2-2 months. He denies nausea, vomiting, fever, chills, or night sweats. The patient reports previously he was given another medicine when he had similar symptoms to which the skilled nursing "give him 4 pills and slam the door". He denies dysuria and denies penile discharge. He states that he was seen in the [place] emergency room several months ago and had "milky urine" and was treated for a UTI at that time. He also states at that time he was told there was protein in his urine. He has not done anything at home for this discomfort. The patient also reports he occasionally expenses "bubbles going up from his scrotum to his abdomen". Timing/Duration: other (1.5-2 months) Severity/Quality: mild Location: right flank Radiation: other (Right side) Activities at Onset: none Prior Genitourinary Problems: none Sexual [place] History: greater than 2 months ago, single partner Associated Symptoms: No fever/chills; lower back pain (right flank); No nausea/vomiting, No urinary frequency Allergies and Home Medications Allergies Coded Allergies: No Known Drug Allergies (Unverified Allergy, Mild, 12/05/09) Home Medications Hydrocodone Bit/Acetaminophen 1 Each Tablet, 1 EACH PO Q4H Prescribed by: BERNA TELLEZ on 12/28/17 182 Nitrofurantoin Monohyd/M-Cryst 100 Mg Capsule, 1 TAB PO BID Prescribed by: TRI LOPEZ on 05/28/20 1240 Patient Home Medication List Home Medication List Reviewed: Yes Review of Systems Review of Systems Constitutional: no symptoms reported, see HPI; No chills, No diaphoresis, No fever EENTM: see HPI, no symptoms reported Respiratory: no symptoms reported, see HPI Cardiovascular: no symptoms reported, see HPI Gastrointestinal: see HPI; No loss of appetite, No nausea, No vomiting Genitourinary: see HPI; denies dysuria; flank pain (Right side); denies hematuria, denies incontinence; pain, other ("milky urine") Musculoskeletal: no symptoms reported Skin: no symptoms reported Psychiatric/Neurological: No Symptoms Reported Endocrine: No Symptoms Reported Hematologic/Lymphatic: No Symptoms Reported All Other Systemes Reviewed Negative Unless Noted: Yes Past Mnjpebp-Ogmwwz-Bhjgxc Hx Past Med/Social Hx: Reviewed Nursing Past Med/Soc Hx Patient Social History Alcohol Use: Occasionally Uses Recreational Drug Use: Yes Drug of Choice: MARIJUANA Smoking Status: Current Everyday Smoker Type Used: Cigarettes Recent Foreign Travel: No Contact w/Someone Who Travel: No Recent Infectious Disease Expo: No Recent Hopitalizations: No Seasonal Allergies Seasonal Allergies: Yes Past Medical History Surgeries: Yes (RT WRIST LT KNEE) Orthopedic Respiratory: No Cardiac: No Neurological: No Gastrointestinal: No Musculoskeletal: No Endocrine: No Cancer: No Psychosocial: Yes Anxiety, Violent Behavior, Depression Psoriasis Family Medical History No Pertinent Family Hx Physical Exam Vital Signs Vital Signs - First Documented 05/28/20 11:45 Temp 36.5 Pulse 130 Resp 20 B/P (MAP) 113/80 (91) Pulse Ox 100 Capillary Refill : Less Than 3 Seconds Height, Weight, BMI Height: 5'10.00" Weight: 165lbs. oz. 74.051046kq; 25.00 BMI Method:Stated General Appearance: WD/WN, no apparent distress HEENT: normal ENT inspection Neck: non-tender, full range of motion Cardiovascular: normal peripheral pulses, no edema Respiratory: chest non-tender, no respiratory distress, no accessory muscle use Gastrointestinal: normal bowel sounds, non tender, soft Back: normal inspection, no CVA tenderness, no vertebral tenderness Extremities: normal range of motion, non-tender, no pedal edema Neurologic/Psychiatric: no motor/sensory deficits, alert, normal mood/affect, oriented x 3 Skin: normal color, warm/dry Progress/Results/Core Measures Suspected Sepsis Recent Fever Within 48 Hours: No Infection Criteria Present: None New/Unexplained Altered Menta: No Sepsis Screen: No Definite Risk SIRS Temperature: Pulse: 130 Respiratory Rate: 20 Blood Pressure 113 /80 Mean: 91 Results/Orders Lab Results Laboratory Tests Test 05/28/20 12:00 Range/Units Urine Color YELLOW Urine Clarity CLEAR Urine pH 6.0 5-9 Urine Specific [place] >=1.030 1.016-1.022 Urine Protein TRACE H NEGATIVE Urine Glucose (UA) NEGATIVE NEGATIVE Urine Ketones NEGATIVE NEGATIVE Urine Nitrite NEGATIVE NEGATIVE Urine Bilirubin NEGATIVE NEGATIVE Urine Urobilinogen 1.0 < = 1.0 MG/DL Urine Leukocyte Esterase NEGATIVE NEGATIVE Urine RBC (Auto) NEGATIVE NEGATIVE Urine RBC NONE /HPF Urine WBC 25-50 H /HPF Urine Crystals NONE /LPF Urine Bacteria FEW H /HPF Urine Casts NONE /LPF Urine Mucus MODERATE H /LPF Urine Culture Indicated YES Urine Opiates Screen NEGATIVE NEGATIVE Urine Oxycodone Screen NEGATIVE NEGATIVE Urine Methadone Screen NEGATIVE NEGATIVE Urine Propoxyphene Screen NEGATIVE NEGATIVE Urine Barbiturates Screen NEGATIVE NEGATIVE Ur Tricyclic Antidepressants Screen NEGATIVE NEGATIVE Urine Phencyclidine Screen NEGATIVE NEGATIVE Urine Amphetamines Screen POSITIVE H NEGATIVE Urine Methamphetamines Screen POSITIVE H NEGATIVE Urine Benzodiazepines Screen NEGATIVE NEGATIVE Urine Cocaine Screen NEGATIVE NEGATIVE Urine Cannabinoids Screen POSITIVE H NEGATIVE My Orders Orders - TRI LOPEZ Ua Culture If Indicated (05/28/20 11:55) Drug Screen Stat (Urine) (05/28/20 12:03) Urine Culture (05/28/20 12:00) Vital Signs/I&O 05/28/20 11:45 Temp 36.5 Pulse 130 Resp 20 B/P (MAP) 113/80 (91) Pulse Ox 100 Capillary Refill : Less Than 3 Seconds Blood Pressure Mean: 91 Departure Impression Primary Impression: Urinary tract infection Qualified Codes: N30.00 - Acute cystitis without hematuria Disposition: HOME, SELF-CARE Condition: Improved Departure-Patient Inst. Decision time for Depature: 12:30 Referrals: PIPER DAWSON MD (PCP/Family) Primary Care Physician Patient Instructions: Urinary Tract Infection, Adult (DC) Add. Discharge Instructions: Increase water intake, 16 ounces every 2 hours while awake. Take antibiotics as prescribed. Follow-up with your primary care provider if symptoms are not improving or worsen. You may alternate between Tylenol 650 mg and ibuprofen 600 mg every 4 hours for pain or fever. Return to the emergency department for new, urgent health care needs. All discharge instructions reviewed with patient and/or family. Voiced understanding. Scripts Nitrofurantoin Monohyd/M-Cryst (Macrobid 100 mg Capsule) 100 Mg Capsule 1 TAB PO BID, #14 CAP 0 Refills Prov: TRI LOPEZ 05/28/20 TRI LOPEZP May 28, 2020 12:08
[2020-05-28 12:15] LABS: BACTERIA,URINE FEW /HPF; WBC,URINE 25-50 /HPF
[2020-05-28] MEDS ORDERED: NITR-65 PO (12:40)
[2020-05-28 12:41] LABS: AMPHETAMINE SCREEN, URINE POSITIVE (NEGATIVE); BARBITURATE SCREEN URINE NEGATIVE (NEGATIVE); BENZODIAZEPINES SCREEN URINE NEGATIVE (NEGATIVE); CANNABINOID SCREEN, URINE POSITIVE (NEGATIVE); COCAINE SCREEN URINE NEGATIVE (NEGATIVE); METHADONE STAT NEGATIVE (NEGATIVE); METHAMPHETAMINE SCREEN URINE S POSITIVE (NEGATIVE); OPIATE SCREEN URINE NEGATIVE (NEGATIVE); OXYCODONE STAT NEGATIVE (NEGATIVE); PROPOXYPHENE STAT NEGATIVE (NEGATIVE); TRICYCLIC ANTIDEPRESSANTS SCRE NEGATIVE (NEGATIVE)
== END 2020-05-28 12:43 | disposition home or self-care (01) ==
LOC: EDUNIT# 11:03 → ER 11:05
DX: N39.0 Urinary tract infection, site not specified (principal); F17.210 Nicotine dependence, cigarettes, uncomplicated
CPT/HCPCS: 80306; 81000; 87088; 99282

== ENCOUNTER 2021-01-12 08:43 | Emergency (ER) | payer SELFPAY ==
[~2021-01-12] VITALS: Ht 180.3 cm; Wt 79.5 kg
[~2021-01-12 08:43] MED LIST changes: +NITR-65 PO
[2021-01-12 09:08] LABS: BILIRUBIN,URINE NEGATIVE (NEGATIVE); CLARITY,URINE CLEAR; COLOR,URINE YELLOW; GLUCOSE, URINE (UA) NEGATIVE (NEGATIVE); KETONES,URINE TRACE (NEGATIVE); LEUKOCYTE ESTERASE ,URINE NEGATIVE (NEGATIVE); NITRITE,URINE NEGATIVE (NEGATIVE); PROTEIN,URINE NEGATIVE (NEGATIVE)
[2021-01-12 09:18] LABS: BACTERIA,URINE NEGATIVE /HPF; SQUAMOUS EPITHELIAL CELL,UR 0-2 /HPF
--- NOTE | 2021-01-12 10:01 | ED GU-Male ---
General Chief Complaint: General Problems/Pain Stated Complaint: POSSIBLE STD Nursing Triage Note: AMB TO ED REPORTS HAS ITCHEY RASH ON HIS PENIS NO DISCHARGE. X 3 DAYS Allergies and Home Medications Allergies Coded Allergies: No Known Drug Allergies (Unverified Allergy, Mild, 12/05/09) Home Medications Hydrocodone Bit/Acetaminophen 1 Each Tablet, 1 EACH PO Q4H Prescribed by: BERNA TELLEZ on 12/28/17 1824 Nitrofurantoin Monohyd/M-Cryst 100 Mg Capsule, 1 TAB PO BID Prescribed by: TRI LOPEZ on 05/28/20 1240 Past Unpuaem-Ayaunh-Rbyohw Hx Patient Social History Alcohol Use: Occasionally Uses Drug of Choice: MARIJUANA Type Used: Cigarettes Recent Infectious Disease Expo: No Recent Hopitalizations: No Seasonal Allergies Seasonal Allergies: Yes Past Medical History Surgeries: Yes (RT WRIST LT KNEE) Orthopedic Respiratory: No Cardiac: No Neurological: No Gastrointestinal: No Musculoskeletal: No Endocrine: No Cancer: No Psychosocial: Yes Anxiety, Violent Behavior, Depression Psoriasis Family Medical History No Pertinent Family Hx Physical Exam Vital Signs Vital Signs - First Documented 01/12/21 08:49 Temp 35.5 Pulse 98 Resp 18 B/P (MAP) 143/83 (103) Pulse Ox 100 O2 Delivery Room Air Capillary Refill : Less Than 3 Seconds Height, Weight, BMI Height: 5'10.00" Weight: 165lbs. oz. 74.845270zd; 24.00 BMI Method:Stated Progress/Results/Core Measures Suspected Sepsis Recent Fever Within 48 Hours: No Infection Criteria Present: None New/Unexplained Altered Menta: No Sepsis Screen: No Definite Risk SIRS Temperature: Pulse: 98 Respiratory Rate: 18 Blood Pressure 143 /83 Mean: 103 Results/Orders Lab Results Laboratory Tests Test 01/12/21 09:00 Range/Units Urine Color YELLOW Urine Clarity CLEAR Urine pH 6.0 5-9 Urine Specific [place] 1.020 1.016-1.022 Urine Protein NEGATIVE NEGATIVE Urine Glucose (UA) NEGATIVE NEGATIVE Urine Ketones TRACE H NEGATIVE Urine Nitrite NEGATIVE NEGATIVE Urine Bilirubin NEGATIVE NEGATIVE Urine Urobilinogen 0.2 < = 1.0 MG/DL Urine Leukocyte Esterase NEGATIVE NEGATIVE Urine RBC (Auto) NEGATIVE NEGATIVE Urine RBC NONE /HPF Urine WBC NONE /HPF Urine Squamous Epithelial Cells 0-2 /HPF Urine Crystals NONE /LPF Urine Bacteria NEGATIVE /HPF Urine Casts NONE /LPF Urine Mucus NEGATIVE /LPF Urine Culture Indicated NO My Orders Orders - BERNA MOLINA MD Chlamydia Trachomatis Urine (01/12/21 08:51) Neis Jak Dna Urine Test (01/12/21 08:51) Ua Culture If Indicated (01/12/21 08:51) Vital Signs/I&O 01/12/21 08:49 Temp 35.5 Pulse 98 Resp 18 B/P (MAP) 143/83 (103) Pulse Ox 100 O2 Delivery Room Air Capillary Refill : Less Than 3 Seconds Blood Pressure Mean: 103 Departure Impression Primary Impression: Candidiasis of penis Disposition: HOME, SELF-CARE Condition: Stable Departure-Patient Inst. Referrals: NO,LOCAL PHYSICIAN (PCP/Family) Primary Care Physician Patient Instructions: Yeast Infection (DC), Balanitis (DC) Add. Discharge Instructions: Your symptoms seem to be most consistent with a yeast infection of the skin. Use a combination of miconazole cream (antifungal) and bacitracin ointment (antibiotic) applied to the affected areas twice daily after cleaning well with soap and water and drying. Apply in thin layers. Do not resume sexual activity until symptoms improve and you review the STI screening results. They should be available in 3 or 4 days. Call with questions or concerns. Return to care if you have worsening symptoms. All discharge instructions reviewed with patient and/or family. Voiced understanding. BERNA MOLINA MD Jan 12, 2021 10:01
[2021-01-12 10:08] VITALS: BP 143/83
== END 2021-01-12 10:08 | disposition home or self-care (01) ==
LOC: EDUNIT# 08:43 → ER 08:44
DX: B37.2 Candidiasis of skin and nail (principal)
CPT/HCPCS: 36415; 81000; 87491; 87591; 99282